=== PATIENT | female | born 1975 | race Caucasian/White ===

== ENCOUNTER 2017-01-07 15:59 | Emergency (ER) | payer BC ==
--- NOTE | 2017-01-07 16:44 | DIAGNOSTIC IMAGING REPORT ---
PROCEDURE: XR CERVICAL SPINE 2 OR 3 VIEW INDICATION: NECK TRAUMA/INJURY TECHNIQUE: Three views. COMPARISON: None. FINDINGS: Osseous structures and disc spaces are normal. No evidence of an acute process or fracture. IMPRESSION: 1. Negative cervical spine.
--- NOTE | 2017-01-07 16:44 | DIAGNOSTIC IMAGING REPORT ---
PROCEDURE: CT HEAD WITHOUT CONTRAST INDICATION: TRAUMA/INJURY TECHNIQUE: Axial CT images were acquired through the head. Coronal and sagittal reformations were created. COMPARISON: None. FINDINGS: No intracranial hemorrhage or extraaxial fluid collections. Ventricles are normal in size, shape and position. There is no mass, mass effect or midline shift. The hill-white matter differentiation is normal. There is no edema. The calvarium is intact. The paranasal sinuses and mastoid air cells are normally aerated. The extracranial soft tissues and orbits are normal. IMPRESSION: 1. No CT evidence of acute intracranial process. 2. Findings discussed with Jose Manuel at 05:[address] scans at this facility use dose modulation, iterative reconstruction, and/or weight-based dosing when appropriate to reduce radiation dose to as low as reasonably achievable.
--- NOTE | 2017-01-07 16:45 | DIAGNOSTIC IMAGING REPORT ---
PROCEDURE: XR LUMBAR SPINE 2 OR 3 VIEWS INDICATION: TRAUMA/INJURY TECHNIQUE: Three views. COMPARISON: None. FINDINGS: Osseous structures and disc spaces are normal. No evidence of an acute process or fracture. IMPRESSION: 1. Negative lumbar spine.
--- NOTE | 2017-01-07 16:51 | ED ORDER SUMMARY ---
..... Patient: DICK LEHMAN OrderSheet [facility] VisitID: [id number] [address] [place] [address] 41y, F Registration Date/Time: 01/07/2017 ORDER SHEET Weight: 56.6 kg (stated) Allergies: Keppra, Tramadol GENERAL ORDERS: CT Head wo Cont Urgent (16:12 01/07/2017 EKoroleva P.A.-C) (Ack 16:15 RKaruga) (16:45 KKnebel R.N.) Cervical Spine 2 or 3V Urgent (16:13 01/07/2017 EKoroleva P.A.-C) (Ack 16:15 RKaruga) (16:45 KKnebel R.N.) Lumbar Spine 2 or 3V Urgent (16:13 01/07/2017 EKoroleva P.A.-C) (Ack 16:15 RKaruga) (16:45 KKnebel R.N.) MEDICATION ORDERS: IV FLUIDS: ORDER SHEET NOTES: [Electronically signed by Viviana Hutchinson R.N. (17:10 01/07/2017)] [Electronically signed by Shakira Richard P.A.-C (17:27 01/07/2017)] [Electronically locked/signed by Viviana Hutchinson R.N. (17:01/07/2017)]
--- NOTE | 2017-01-07 16:51 | ED ORDER SUMMARY ---
..... Patient: DICK LEHMAN OrderSheet [facility] VisitID: [id number] [address] [place] [address] 41y, F Registration Date/Time: 01/07/2017 ORDER SHEET Weight: 56.6 kg (stated) Allergies: Keppra, Tramadol GENERAL ORDERS: CT Head wo Cont Urgent (16:12 01/07/2017 EKoroleva P.A.-C) (Ack 16:15 RKaruga) (16:45 KKnebel R.N.) Cervical Spine 2 or 3V Urgent (16:13 01/07/2017 EKoroleva P.A.-C) (Ack 16:15 RKaruga) (16:45 KKnebel R.N.) Lumbar Spine 2 or 3V Urgent (16:13 01/07/2017 EKoroleva P.A.-C) (Ack 16:15 RKaruga) (16:45 KKnebel R.N.) MEDICATION ORDERS: IV FLUIDS: ORDER SHEET NOTES: [Electronically signed by Viviana Hutchinson R.N. (17:10 01/07/2017)] [Electronically signed by Shakira Richard P.A.-C (17:27 01/07/2017)] [Electronically locked/signed by Viviana Hutchinson R.N. (17:01/07/2017)]
--- NOTE | 2017-01-07 16:51 | ED NURSING NOTES ---
Clinical Report - Nurses [facility] [address] [place] [address] 01/07/2017 16:00 [id number] Triage time 16:11 Jan 07 2017. Acuity: LEVEL 3. Alert. No acute distress. [place]OU[place] COMA SCORE: [place] Coma Scale: 15- eyes open spontaneously (4); best verbal response- oriented x 4 (5); best motor response- obeys commands (6). --16:17 Viviana Hutchinson R.N. 16:11 01/07/17. BP: 137/96. HR: 89. RR: 16. O2 saturation: 97%. Temp: 98.2 F. Pain level now: 07/06. --16:17 Viviana Hutchinson R.N. Chief Complaint: FALL. --17:10 Viviana Hutchinson R.N. Weight: 56.6 kg stated. Height/Length: 60 inches Per Patient. BMI: 24.4. --16:16 Viviana Hutchinson R.N. Medications LaMICtal Oral (Tablet 200 mg) 2 tablets, daily. --16:12 Viviana Hutchinsno R.N. LaMICtal Oral (Tablet 150 mg) 2 tablets, daily (takes both 150 and 200 mg tablets). --16:13 Viviana Hutchinson R.N. Advil Oral, PRN as needed. --16:13 Viviana Hutchinson R.N. Allergies Keppra. --16:14 Viviana Hutchinson R.N. Tramadol. --16:14 Viviana Hutchinson R.N. History Arrived by private vehicle. Historian: patient. Accompanied by family. Location of injuries: left parietal area and right hip. This occurred just prior to arrival. She has had a headache and neck pain. ( right hip pain). No loss of consciousness. Treatment LOGGING SPECIALIST: None. Trauma activation: Pre-hospital notification of patient arrival was not received. PAST MEDICAL HX: Tetanus status: unknown. Immunizations: up-to-date. The patient has had a hysterectomy. SOCIAL HX: Current every day heavy tobacco smoker (cigarette)- 1 pack per day. No alcohol use or drug use. No infectious disease exposure. SELF HARM ASSESSMENT: A self harm assessment was performed. The patient answered "no" to the question "Do you have thoughts of harming or killing yourself?". NUTRITIONAL RISK ASSESSMENT: The nutritional risk assessment revealed no deficiencies. FUNCTIONAL ASSESSMENT: Functional assessment: no impairments noted. LEARNING NEEDS ASSESSMENT: The learning needs assessment revealed no barriers. ABUSE ASSESSMENT: Abuse assessment: The patient was asked "Do you feel safe in your home?". FALL RISK ASSESSMENT: Fall risk assessment completed; hx of seizures. SKIN INTEGRITY ASSESSMENT: Skin integrity risk assessment completed. No skin integrity risk identified. --16:17 Viviana Hutchinson R.N. PROBLEMS: Seizure. --16:14 Viviana Hutchinson R.N. ADDITIONAL SURGERIES: Appendectomy. Cholecystectomy. Hysterectomy. Laparotomy. Right Knee. Tonsillectomy. Tumor Removal. --16:14 Viviana Hutchinson R.N. Interventions ID and allergy band on patient. To room. --16:17 Viviana Hutchinson R.N. PHYSICAL ASSESSMENT Ambulatory to room. GENERAL / NEURO / PSYCH: Alert. Oriented X 4. Appears in pain. HEENT: Left parietal area: tenderness. RESPIRATORY: Respirations not labored. CVS: Normal heart rate and rhythm. Capillary refill less than 2 seconds. GI / : Abdomen soft and nontender. EXTREMITIES: Neuro-vascular status intact to the extremity. Right hip: tenderness. SKIN: Skin is warm and dry. --16:17 Viviana Hutchinson R.N. NURSING PROGRESS NOTES Cold pack applied. Two patient identifiers checked. Call light placed in reach. Side rails up. Bed placed in lowest position. --16:18 Viviana Hutchinson R.N. Patient transported to [place] by stretcher with [facility]. (16:20 Jan 07 2017). --16:25 Viviana Hutchinson R.N. DISPOSITION / DISCHARGE Departure time: 17:Jan 07 2017. Condition at departure: unchanged. Fall risk assessment completed; seizure hx. No learning barriers present. Discharge instructions provided and reviewed with the patient. Reviewed warnings (stay off high places with seizure disorder). Reviewed medication(s) side effects, precautions, dosing and course information. Prescription(s) given to the patient. Reviewed referral to a primary care physician. Patient verbalized understanding. Written instructions provided in Bahamian. The patient was discharged home and accompanied by spouse. She left the Emergency Department ambulatory and via private vehicle. Spouse driving. --17:02 Viviana Hutchinson R.N. 16:59 01/07/17. BP: 119/85. HR: 66. RR: 16. O2 saturation: 94%. Pain level now: 05/06. --17:02 Viviana Hutchinson R.N. Locked/Released at 01/07/2017 17:10 by Viviana Hutchinson R.N.
--- NOTE | 2017-01-07 16:51 | ED CLINICAL REPORT ---
Clinical Report - Physicians/Mid Levels [facility] [address] [place] [address] 01/07/2017 16:00 [id number] Time Seen: 16:07 Jan 07 2017. Arrived- By private vehicle. Historian- patient. HISTORY OF PRESENT ILLNESS Location of injuries- head, neck and lower back. Chief Complaint: FALL. The injury occurred just prior to arrival. Fell. Occurred at home. The patient sustained a blow to the head. No neck pain or loss of consciousness. Not dazed. (Patient reports being about 4 feet up in the air, and the bathroom when she slipped and fell. Landing on her lower back, and sustaining injury to her head from the wall.). REVIEW OF SYSTEMS No hearing loss. All systems otherwise negative, except as recorded above. PAST HISTORY Problems: Seizure. Additional Surgeries: Appendectomy. Cholecystectomy. Hysterectomy. Laparotomy. Right Knee. Tonsillectomy. Tumor Removal. Medications: Advil Oral, PRN as needed. LaMICtal Oral (Tablet 150 mg) 2 tablets, daily (takes both 150 and 200 mg tablets). LaMICtal Oral (Tablet 200 mg) 2 tablets, daily. Allergies: Keppra. Tramadol. SOCIAL HISTORY Smoker- current status unknown. No drug use. ADDITIONAL NOTES The nursing notes have been reviewed. PHYSICAL EXAM Vital Signs: 01/07/2017 16:11 BP: 137/96. HR: 89. RR: 16. O2 saturation: 97%. Temp: 98.2 F. Pain level now: 07/06. Appearance: Alert. No acute distress. No backboard or C-collar. Head: Head non-tender. Left parietal area: mild tenderness and swelling of the upper aspect of the left parietal area. No ecchymosis or foreign body. Eyes: Pupils equal, round and reactive to light. ENT: No hemotympanum. Neck: No vertebral tenderness. Posterior neck: lower cervical spine, mild tenderness. No foreign body. No ecchymosis. CVS: Pulses normal. Rhythm normal. Respiratory: Breath sounds normal. Chest nontender. No chest wall injury. Abdomen: No organomegaly. No mass. No abdominal tenderness. Back: Mild vertebral tenderness in the right lower and left lower lumbar area. No limitation in ROM. Skin: Skin intact. Skin warm. Extremities: Normal inspection. No abrasions. Right shoulder. No tenderness or swelling. Left shoulder. No tenderness or swelling. Right elbow. No tenderness or swelling. Left elbow. No tenderness or swelling. Pelvis. No swelling. Right hip. No tenderness or laceration. Gait: Gait not tested due to pain. Neuro: [place] Coma Scale: 15- eyes open spontaneously (4); best verbal response- oriented x 3 (5); best motor response- obeys commands (6). Oriented X 3. No motor deficit. LABS, X-RAYS, AND EKG X-Rays: LS spine series. C-Spine X-rays: (IMPRESSION: 1. Negative cervical spine. Electronically Final signed by:Tai Bauer MD 01/07/2017 4:44:53 PM). LS-Spine X-rays: (IMPRESSION: 1. Negative lumbar spine. Electronically Final signed by:Tai Bauer MD 01/07/2017 4:45:54 PM). CT Head: (IMPRESSION: 1. No CT evidence of acute intracranial process. 2. Findings discussed with Jose Manuel at 05:[address] scans at this facility use dose modulation, iterative reconstruction, and/or weight-based dosing when appropriate to reduce radiation dose to as low as reasonably achievable. \ Electronically Final signed by:Tai Bauer MD 01/07/2017 4:44:05 PM). PROGRESS AND PROCEDURES Course of Care: here in the air patient behaving her normal self, no signs of concussion. No emesis. CT of the head is unremarkable.. X-ray of the cervical spine is negative. Patient able to ambulate. Stable. Follow up outpatient. Patient is stable. Patient/family counseled. Disposition: Discharged. CLINICAL IMPRESSION Minor closed head injury. Sprain of the cervical spine. Contusion to the lower back. Fall. INSTRUCTIONS Apply ice. Prescription Medications: Hydrocodone/APAP 5mg / 325mg: take 1 orally every 6 hours as needed for pain. Dispense ten (10). No refill. OTC Medications: Motrin (available over the counter): take according to label instructions. Follow-up: Follow up with your doctor in three days. (Electronically signed by Shakira Richard P.A.-C 01/07/2017 17:27)
--- NOTE | 2017-01-07 16:51 | ED NURSING NOTES ---
Clinical Report - Nurses [facility] [address] [place] [address] 01/07/2017 16:00 [id number] Triage time 16:11 Jan 07 2017. Acuity: LEVEL 3. Alert. No acute distress. KOURTNEY COMA SCORE: Kourtney Coma Scale: 15- eyes open spontaneously (4); best verbal response- oriented x 4 (5); best motor response- obeys commands (6). --16:17 Viviana Hutchinson R.N. 16:11 01/07/17. BP: 137/96. HR: 89. RR: 16. O2 saturation: 97%. Temp: 98.2 F. Pain level now: 07/06. --16:17 Viviana Hutchinson R.N. Chief Complaint: FALL. --17:10 Viviana Hutchinson R.N. Weight: 56.6 kg stated. Height/Length: 60 inches Per Patient. BMI: 24.4. --16:16 Viviana Hutchinson R.N. Medications LaMICtal Oral (Tablet 200 mg) 2 tablets, daily. --16:12 Viviana Hutchinson R.N. LaMICtal Oral (Tablet 150 mg) 2 tablets, daily (takes both 150 and 200 mg tablets). --16:13 Viviana Hutchinson R.N. Advil Oral, PRN as needed. --16:13 Viviana Hutchinson R.N. Allergies Keppra. --16:14 Viviana Hutchinson R.N. Tramadol. --16:14 Viviana Hutchinson R.N. History Arrived by private vehicle. Historian: patient. Accompanied by family. Location of injuries: left parietal area and right hip. This occurred just prior to arrival. She has had a headache and neck pain. ( right hip pain). No loss of consciousness. Treatment CLEANER ASSISTANT: None. Trauma activation: Pre-hospital notification of patient arrival was not received. PAST MEDICAL HX: Tetanus status: unknown. Immunizations: up-to-date. The patient has had a hysterectomy. SOCIAL HX: Current every day heavy tobacco smoker (cigarette)- 1 pack per day. No alcohol use or drug use. No infectious disease exposure. SELF HARM ASSESSMENT: A self harm assessment was performed. The patient answered "no" to the question "Do you have thoughts of harming or killing yourself?". NUTRITIONAL RISK ASSESSMENT: The nutritional risk assessment revealed no deficiencies. FUNCTIONAL ASSESSMENT: Functional assessment: no impairments noted. LEARNING NEEDS ASSESSMENT: The learning needs assessment revealed no barriers. ABUSE ASSESSMENT: Abuse assessment: The patient was asked "Do you feel safe in your home?". FALL RISK ASSESSMENT: Fall risk assessment completed; hx of seizures. SKIN INTEGRITY ASSESSMENT: Skin integrity risk assessment completed. No skin integrity risk identified. --16:17 Viviana Hutchinson R.N. PROBLEMS: Seizure. --16:14 Viviana Hutchinson R.N. ADDITIONAL SURGERIES: Appendectomy. Cholecystectomy. Hysterectomy. Laparotomy. Right Knee. Tonsillectomy. Tumor Removal. --16:14 Viviana Hutchinson R.N. Interventions ID and allergy band on patient. To room. --16:17 Viviana Hutchinson R.N. PHYSICAL ASSESSMENT Ambulatory to room. GENERAL / NEURO / PSYCH: Alert. Oriented X 4. Appears in pain. HEENT: Left parietal area: tenderness. RESPIRATORY: Respirations not labored. CVS: Normal heart rate and rhythm. Capillary refill less than 2 seconds. GI / : Abdomen soft and nontender. EXTREMITIES: Neuro-vascular status intact to the extremity. Right hip: tenderness. SKIN: Skin is warm and dry. --16:17 Viviana Hutchinson R.N. NURSING PROGRESS NOTES Cold pack applied. Two patient identifiers checked. Call light placed in reach. Side rails up. Bed placed in lowest position. --16:18 Viviana Hutchinson R.N. Patient transported to [place] by stretcher with [employer]. (16:20 Jan 07 2017). --16:25 Viviana Hutchinson R.N. DISPOSITION / DISCHARGE Departure time: 17:Jan 07 2017. Condition at departure: unchanged. Fall risk assessment completed; seizure hx. No learning barriers present. Discharge instructions provided and reviewed with the patient. Reviewed warnings (stay off high places with seizure disorder). Reviewed medication(s) side effects, precautions, dosing and course information. Prescription(s) given to the patient. Reviewed referral to a primary care physician. Patient verbalized understanding. Written instructions provided in Taiwanese. The patient was discharged home and accompanied by spouse. She left the Emergency Department ambulatory and via private vehicle. Spouse driving. --17:02 Viviana Hutchinson R.N. 16:59 01/07/17. BP: 119/85. HR: 66. RR: 16. O2 saturation: 94%. Pain level now: 05/06. --17:02 Viviana Hutchinson R.N. Locked/Released at 01/07/2017 17:10 by Viviana Hutchinson R.N.
--- NOTE | 2017-01-07 16:51 | ED CLINICAL REPORT ---
Clinical Report - Physicians/Mid Levels [facility] [address] [place] [address] 01/07/2017 16:00 [id number] Time Seen: 16:07 Jan 07 2017. Arrived- By private vehicle. Historian- patient. HISTORY OF PRESENT ILLNESS Location of injuries- head, neck and lower back. Chief Complaint: FALL. The injury occurred just prior to arrival. Fell. Occurred at home. The patient sustained a blow to the head. No neck pain or loss of consciousness. Not dazed. (Patient reports being about 4 feet up in the air, and the bathroom when she slipped and fell. Landing on her lower back, and sustaining injury to her head from the wall.). REVIEW OF SYSTEMS No hearing loss. All systems otherwise negative, except as recorded above. PAST HISTORY Problems: Seizure. Additional Surgeries: Appendectomy. Cholecystectomy. Hysterectomy. Laparotomy. Right Knee. Tonsillectomy. Tumor Removal. Medications: Advil Oral, PRN as needed. LaMICtal Oral (Tablet 150 mg) 2 tablets, daily (takes both 150 and 200 mg tablets). LaMICtal Oral (Tablet 200 mg) 2 tablets, daily. Allergies: Keppra. Tramadol. SOCIAL HISTORY Smoker- current status unknown. No drug use. ADDITIONAL NOTES The nursing notes have been reviewed. PHYSICAL EXAM Vital Signs: 01/07/2017 16:11 BP: 137/96. HR: 89. RR: 16. O2 saturation: 97%. Temp: 98.2 F. Pain level now: 07/06. Appearance: Alert. No acute distress. No backboard or C-collar. Head: Head non-tender. Left parietal area: mild tenderness and swelling of the upper aspect of the left parietal area. No ecchymosis or foreign body. Eyes: Pupils equal, round and reactive to light. ENT: No hemotympanum. Neck: No vertebral tenderness. Posterior neck: lower cervical spine, mild tenderness. No foreign body. No ecchymosis. CVS: Pulses normal. Rhythm normal. Respiratory: Breath sounds normal. Chest nontender. No chest wall injury. Abdomen: No organomegaly. No mass. No abdominal tenderness. Back: Mild vertebral tenderness in the right lower and left lower lumbar area. No limitation in ROM. Skin: Skin intact. Skin warm. Extremities: Normal inspection. No abrasions. Right shoulder. No tenderness or swelling. Left shoulder. No tenderness or swelling. Right elbow. No tenderness or swelling. Left elbow. No tenderness or swelling. Pelvis. No swelling. Right hip. No tenderness or laceration. Gait: Gait not tested due to pain. Neuro: [place] Coma Scale: 15- eyes open spontaneously (4); best verbal response- oriented x 3 (5); best motor response- obeys commands (6). Oriented X 3. No motor deficit. LABS, X-RAYS, AND EKG X-Rays: LS spine series. C-Spine X-rays: (IMPRESSION: 1. Negative cervical spine. Electronically Final signed by:Tai Bauer MD 01/07/2017 4:44:53 PM). LS-Spine X-rays: (IMPRESSION: 1. Negative lumbar spine. Electronically Final signed by:Tia Bauer MD 01/07/2017 4:45:54 PM). CT Head: (IMPRESSION: 1. No CT evidence of acute intracranial process. 2. Findings discussed with Jose Manuel at 05:[address] scans at this facility use dose modulation, iterative reconstruction, and/or weight-based dosing when appropriate to reduce radiation dose to as low as reasonably achievable. \ Electronically Final signed by:Tai Bauer MD 01/07/2017 4:44:05 PM). PROGRESS AND PROCEDURES Course of Care: here in the air patient behaving her normal self, no signs of concussion. No emesis. CT of the head is unremarkable.. X-ray of the cervical spine is negative. Patient able to ambulate. Stable. Follow up outpatient. Patient is stable. Patient/family counseled. Disposition: Discharged. CLINICAL IMPRESSION Minor closed head injury. Sprain of the cervical spine. Contusion to the lower back. Fall. INSTRUCTIONS Apply ice. Prescription Medications: Hydrocodone/APAP 5mg / 325mg: take 1 orally every 6 hours as needed for pain. Dispense ten (10). No refill. OTC Medications: Motrin (available over the counter): take according to label instructions. Follow-up: Follow up with your doctor in three days. (Electronically signed by Shakira Richard P.A.-C 01/07/2017 17:27)
--- NOTE | 2017-01-07 17:27 | ED MED RECONCILIATION SUMMARY ---
Patient: DICK LEHMAN Medication Reconciliation Report [facility] VisitID: [id number] [address] [place] [address] 41y, F Registration Date/Time: 01/07/2017 Weight: 56.6 kg Height/Length: 60 in. BMI: 24.4 ALLERGIES: Keppra, Tramadol The patient's Home Medications are listed below: THE FOLLOWING MEDICATIONS NEED TO BE RECONCILED: Advil Oral, PRN LaMICtal Oral (150 mg) 2 tablets, daily, takes both 150 and 200 mg tablets LaMICtal Oral (200 mg) 2 tablets, daily The source(s) of the original Home Medication information: Not obtained. The following Medications were given to the patient in the Emergency Department: None. The following Medications were prescribed to the patient: Motrin (available over the counter): take according to label instructions. -- Shakira Richard, P.A.-C Hydrocodone/APAP 5mg / 325mg: take 1 orally every 6 hours as needed for pain. Dispense ten (10). No refill. -- Shakira Richard, P.A.-C
--- NOTE | 2017-01-07 17:27 | ED MED RECONCILIATION SUMMARY ---
Patient: DICK LEHMNA Medication Reconciliation Report [facility] VisitID: [id number] [address] [place] [address] 41y, F Registration Date/Time: 01/07/2017 Weight: 56.6 kg Height/Length: 60 in. BMI: 24.4 ALLERGIES: Keppra, Tramadol The patient's Home Medications are listed below: THE FOLLOWING MEDICATIONS NEED TO BE RECONCILED: Advil Oral, PRN LaMICtal Oral (150 mg) 2 tablets, daily, takes both 150 and 200 mg tablets LaMICtal Oral (200 mg) 2 tablets, daily The source(s) of the original Home Medication information: Not obtained. The following Medications were given to the patient in the Emergency Department: None. The following Medications were prescribed to the patient: Motrin (available over the counter): take according to label instructions. -- Shakira Richard, P.A.-C Hydrocodone/APAP 5mg / 325mg: take 1 orally every 6 hours as needed for pain. Dispense ten (10). No refill. -- Shakira Richard, P.A.-C
--- NOTE | 2017-01-07 17:27 | ED MAR SUMMARY ---
..... Medication Administration Record [facility] [address] [place], [place] [id number] Patient: DICK LEHMAN Visit ID: [id number] 41y, F Weight: 56.6 kg Height/Length: 60 in BMI: 24.4 ALLERGIES: Tramadol, Keppra
--- NOTE | 2017-01-07 17:27 | ED MAR SUMMARY ---
..... Medication Administration Record [facility] [address] [place] [id number] Patient: DICK LEHMAN Visit ID: [id number] 41y, F Weight: 56.6 kg Height/Length: 60 in BMI: 24.4 ALLERGIES: Tramadol, Keppra
--- NOTE | 2017-01-07 17:27 | ED DISCHARGE INSTRUCTIONS ---
Patient: DICK LEHMAN General Instructions [facility] VisitID: [id number] [place] [address] 41y, F Registration Date/Time: 01/07/2017 Minor closed head injury. Sprain of the cervical spine. Contusion to the lower back. Fall. INSTRUCTIONS Apply ice. Prescription Medications: Hydrocodone/APAP 5mg / 325mg: take 1 orally every 6 hours as needed for pain. Dispense ten (10). No refill. OTC Medications: Motrin (available over the counter): take according to label instructions. Follow-up: Follow up with your doctor in three days. ADDITIONAL INFORMATION Mechanical Fall You have had a fall today. It appears that the cause is mechanical. That means that you slipped, tripped or lost your balance. If your fall had been due to fainting or a seizure, further tests would be required. Home Care: Rest today and resume your normal activities when you are feeling back to normal. If you were injured during the fall, follow the advice from your doctor regarding care of your injury. You may use acetaminophen (Tylenol) or ibuprofen (Motrin, Advil) to control pain, unless another pain medicine was prescribed. [NOTE: If you have chronic liver or kidney disease or ever had a stomach ulcer or GI bleeding, talk with your doctor before using these medicines.] Fall Prevention: Was there anything that caused your fall that can be fixed, removed, or replaced? Make your home safe by keeping walkways clear of objects you may trip over. Use non-slip pads under rugs. Do not walk in poorly lit areas. Do not stand on chairs or wobbly ladders. Use caution when reaching overhead or looking upward. This position can cause a loss of balance. Be sure your shoes fit properly, have non-slip bottoms and are in good condition. Be cautious when going up and down curbs, and walking on uneven sidewalks. If your balance is poor, consider using a cane or walker. Stay as active as you can. Balance, flexibility, strength, and endurance all come from exercise. They all play a role in preventing falls. Follow Up with your doctor or as advised by our staff. Get Prompt Medical Attention if any of the following occur: Repeated mechanical falls, or unexplained falls Dizziness, fainting or seizure Severe headache Chest pain or shortness of breath Palpitations (very rapid or very slow or irregular heartbeat) Blood in vomit, stools (black or red color) Weakness of an arm or leg or one side of the face Difficulty with speech or vision Neck Sprain Or Strain A sudden force that causes turning or bending of the neck (such as in a car accident) can stretch or tear muscles (strain) and ligaments (sprain) and cause neck pain. Sometimes neck pain occurs after a simple awkward movement. In either case, muscle spasm is commonly present and contributes to the pain. Unless you had a forceful physical injury (for example, a car accident or fall), X-rays are usually not ordered for the initial evaluation of neck pain. If pain continues and dose not respond to medical treatment, X-rays and other tests may be performed at a later time. Home care The following guidelines will help you care for your injury at home: You may feel more soreness and spasm the first few days after the injury. Reduce your activity level until symptoms begin to improve. When lying down, use a comfortable pillow that supports the head and keeps the spine in a neutral position. The position of the head should not be tilted forward or backward. Use ice packs (ice in a plastic bag, wrapped in a towel) to treat acute pain. Apply for 20 minutes every 24 hours during the first two days. Then, begin local heat (hot shower, hot bath or heating pad) andmassageto reduce muscle spasm. Some patients feel best alternating hot and cold treatments, or just staying with one method only. Do what feels the best to you and gives the most relief. You may use acetaminophen or ibuprofen to control pain, unless another pain medicine was prescribed.If you have chronic liver or kidney disease or ever had a stomach ulcer or GI bleeding, talk with your doctor before using these medicines. Follow-up care Follow up with your physician or this facility if your symptoms do not show signs of improvement. Physical therapy may be needed. If you had X-rays today, they didnt show any broken bones, breaks, or fractures. Sometimes fractures dont show up on the first X-ray. Bruises and sprains can sometimes hurt as much as a fracture. These injuries can take time to heal completely. If your symptoms dont improve or they get worse, talk with your doctor. You may need a repeat X-ray. When to seek medical care Get prompt medical attention if any of the following occur: Pain becomes worse or spreads into your arms Weakness or numbness in one or both arms Contusion, Back You have a CONTUSION of the back. This is a bruise with swelling and some bleeding under the skin. There are no broken bones. This injury takes a few days to a few weeks to heal. It is normal to feel muscle stiffness and aching in the area of injury the next day. Home Care: 1) Rest and relax your back muscles until you are feeling better. 2) Apply an ice pack (crushed or cubed ice in a plastic bag, wrapped in a towel) for 20 minutes every 2-4 hours during the first two days after a new injury. Local heat (hot shower, hot bath or heating pad) and massage will help reduce muscle spasm . Some patients feel best alternating treatments. Use the method that feels best to you for. 3) You may use acetaminophen (Tylenol) or ibuprofen (Motrin, Advil) to control pain, unless another pain medicine was prescribed. [ NOTE : If you have chronic liver or kidney disease or ever had a stomach ulcer or GI bleeding, talk with your doctor before using these medicines.] Follow Up with your doctor or this facility if your symptoms do not start to improve after three days. [NOTE: If X-rays were taken, they will be reviewed by a radiologist. You will be notified of any new findings that may affect your care.] Get Prompt Medical Attention if any of the following occur: -- Pain becomes worse or spreads to one or both legs -- Weakness or numbness in one or both legs -- Loss of bowel or bladder control -- Numbness in the groin or genital area -- Redness, warmth or drainage from the skin Head Injury, No Wake-Up (Adult) You have had a head injury. It does not appear serious at this time. Symptoms of a more serious problem (concussion, bruising, or bleeding in the brain) may appear later. Therefore, watch for the WARNING SIGNS listed below. Home Care: Your healthcare provider will tell you whether its okay to drive. If so, you can drive yourself home. For the next day or so, be careful when driving or using heavy machinery until you are sure you have no delayed symptoms. During the next 24 hours someone must stay with you to check for the signs below. It is not necessary to stay awake or be awakened during the night. If you have swelling of the face or scalp, apply an ice pack (ice cubes in a plastic bag, wrapped in a towel) for 20 minutes. Do this every 1-2 hours until the swelling starts to go down. Do not use aspirin or ibuprofen (Motrin, Advil) after a head injury.You may use acetaminophen (Tylenol)to control pain, unless another pain medicine was prescribed. [NOTE: If you have chronic liver or kidney disease or ever had a stomach ulcer or GI bleeding, talk with your doctor before using these medicines.] For the next 24 hours: Do not take alcohol, sedatives or medicines that make you sleepy. Avoid strenuous activities. No lifting or straining. If you have had any symptoms of a concussion today (nausea, vomiting, dizziness, confusion, headache, memory loss or if you were knocked out), do not return to sports or any activity that could result in another head injury until all symptoms are gone and you have been cleared by your doctor. A second head injury before fully recovering from the first one can lead to serious brain injury. Follow Up with your doctor if symptoms are not improving after 24 hours, or as directed. [NOTE: A radiologist will review any X-rays or CT scans that were taken. We will notify you of any new findings that may affect your care.] Get Prompt Medical Attention if any of the followingWARNING SIGNS occur: Repeated vomiting Severe or worsening headache or dizziness Unusual drowsiness, or unable to awaken as usual Confusion or change in behavior or speech, memory loss, blurred vision Convulsion (seizure) Increasing scalp or face swelling Redness, warmth or pus from the swollen area Fluid drainage or bleeding from the nose or ears Hydrocodone Bitartrate, Acetaminophen Oral tablet What is this medicine? ACETAMINOPHEN; HYDROCODONE (a set a JENNIFER jacqueline fen; shanon droe KOE done) is a pain reliever. It is used to treat mild to moderate pain. How should I use this medicine? Take this medicine by mouth. Swallow it with a full glass of water. Follow the directions on the prescription label. If the medicine upsets your stomach, take the medicine with food or milk. Do not take more than you are told to take. Talk to your incinerator operator regarding the use of this medicine in children. This medicine is not approved for use in children. What side effects may I notice from receiving this medicine? Side effects that you should report to your doctor or health wild animal caretaker as soon as possible: allergic reactions like skin rash, itching or hives, swelling of the face, lips, or tongue breathing problems confusion feeling faint or lightheaded, falls stomach pain yellowing of the eyes or skin Side effects that usually do not require medical attention (report to your doctor or health wild animal caretaker if they continue or are bothersome): nausea, vomiting stomach upset What may interact with this medicine? alcohol antihistamines isoniazid medicines for depression, anxiety, or psychotic disturbances medicines for sleep muscle relaxants naltrexone narcotic medicines (opiates) for pain phenobarbital ritonavir tramadol What if I miss a dose? If you miss a dose, take it as soon as you can. If it is almost time for your next dose, take only that dose. Do not take double or extra doses. Where should I keep my medicine? Keep out of the reach of children. This medicine can be abused. Keep your medicine in a safe place to protect it from theft. Do not share this medicine with anyone. Selling or giving away this medicine is dangerous and against the law. Store at room temperature between 15 and 30 degrees C (59 and 86 degrees F). Protect from light. Keep container tightly closed. Throw away any unused medicine after the expiration date. Discard unused medicine and used packaging carefully. Pets and children can be harmed if they find used or lost packages. What should I tell my health care provider before I take this medicine? They need to know if you have any of these conditions: brain tumor Crohn's disease, inflammatory bowel disease, or ulcerative colitis drink more than 3 alcohol-containing drinks per day drug abuse or addiction head injury heart or circulation problems kidney disease or problems going to the bathroom liver disease lung disease, asthma, or breathing problems an unusual or allergic reaction to acetaminophen, hydrocodone, other opioid analgesics, other medicines, foods, dyes, or preservatives or trying to get breast-feeding What should I watch for while using this medicine? Tell your doctor or health wild animal caretaker if your pain does not go away, if it gets worse, or if you have new or a different type of pain. You may develop tolerance to the medicine. Tolerance means that you will need a higher dose of the medicine for pain relief. Tolerance is normal and is expected if you take the medicine for a long time. Do not suddenly stop taking your medicine because you may develop a severe reaction. Your body becomes used to the medicine. This does NOT mean you are addicted. Addiction is a behavior related to getting and using a drug for a non-medical reason. If you have pain, you have a medical reason to take pain medicine. Your doctor will tell you how much medicine to take. If your doctor wants you to stop the medicine, the dose will be slowly lowered over time to avoid any side effects. You may get drowsy or dizzy when you first start taking the medicine or change doses. Do not drive, use machinery, or do anything that may be dangerous until you know how the medicine affects you. Stand or sit up slowly. There are different types of narcotic medicines (opiates) for pain. If you take more than one type at the same time, you may have more side effects. Give your health care provider a list of all medicines you use. Your doctor will tell you how much medicine to take. Do not take more medicine than directed. Call emergency for help if you have problems breathing. The medicine will cause constipation. Try to have a bowel movement at least every 2 to 3 days. If you do not have a bowel movement for 3 days, call your doctor or health wild animal caretaker. Too much acetaminophen can be very dangerous. Do not take Tylenol (acetaminophen) or medicines that contain acetaminophen with this medicine. Many non-prescription medicines contain acetaminophen. Always read the labels carefully. You have been given the following additional information: Fall, Mechanical Neck Sprain/Strain Contusion, Back HEAD INJURY, No Wake-Up (Adult) Hydrocodone Bitartrate, Acetaminophen Oral tablet (Electronically signed by Shakira Richard P.A.-C 01/07/2017 17:27)
== END 2017-01-07 17:00 | disposition home or self-care (01) ==
LOC: ED SRH 15:59
DX: S09.90XA Unspecified injury of head, initial encounter (principal); S13.4XXA Sprain of ligaments of cervical spine, initial encounter; S30.0XXA Contusion of lower back and pelvis, initial encounter; W18.09XA Striking against other object with subsequent fall, initial encounter; Y92.002 Bathroom of unspecified non-institutional (private) residence as the place of occurrence of the external cause; Y93.9 Activity, unspecified; Y99.9 Unspecified external cause status; Z88.8 Allergy status to other drugs, medicaments and biological substances; Z79.899 Other long term (current) drug therapy